=== PATIENT | female | born 1990 | race Caucasian/White ===

== ENCOUNTER 2017-08-26 05:31 | Inpatient (IN) | payer MEDICAID ==
[~2017-08-26] VITALS: Ht 172.7 cm; Wt 84.0 kg
[2017-08-26] MEDS ORDERED: OXYTOCIN 30U/ 0.9% NaCL 500ML 500 ML IV PRN (05:36)
[2017-08-26] MEDS ORDERED: OXYTOCIN 30U/ 0.9% NaCL 500ML 500 ML IV ONE (05:36)
[2017-08-26 05:44] VITALS: BP 131/80
[2017-08-26] MEDS ORDERED: PREN-3 PO (05:51)
[2017-08-26 05:56] LABS: BASOPHILS # (AUTO) 0.06 x10^3/uL (0-0.1); BASOPHILS % (AUTO) 1 % (0-1); EOSINOPHILS # (AUTO) 0.03 x10^3/uL (0-0.4); EOSINOPHILS % (AUTO) 0 % (1-7); LYMPHOCYTES # (AUTO) 2.03 x10^3/uL (1-3.4); LYMPHOCYTES % (AUTO) 20 % (22-44); MD NO; MEAN CORPUSCULAR HEMOGLOBIN 29.4 pg (27.0-34.8); MEAN CORPUSCULAR HGB CONC 34.3 g/dL (32.4-35.8); MEAN CORPUSCULAR VOLUME 85.5 fL (80-100); MEAN PLATELET VOLUME 10.6 fL (7.4-10.4); MONOCYTES # (AUTO) 0.73 x10^3/uL (0.2-0.8); MONOCYTES % (AUTO) 7 % (2-9); NEUTROPHILS # (AUTO) 7.39 x10^3/uL (1.8-6.8); NEUTROPHILS % (AUTO) 72 % (42-75); PLATELET COUNT 186 x10^3/uL (130-400); RED BLOOD COUNT 4.61 x10^6/uL (3.82-5.3)
[2017-08-26] MEDS ORDERED: PLEASE ENTER ALLERGIES MC SCH (06:00)
[2017-08-26] MEDS ORDERED: FENTANYL PF 100 MCG/2ML IVPush PRN (06:00)
[2017-08-26] MEDS ORDERED: FENTANYL PF 100 MCG/2ML IV PRN (06:00)
[2017-08-26] MEDS ORDERED: ONDANSETRON 2MG/ML, 2ML IVPush PRN (06:00)
[2017-08-26] MEDS: LACTATED RINGERS 1,000 ML IV SCH ×4 (06:11→20:30)
[2017-08-26] MEDS ORDERED: OXYTOCIN 30U/ 0.9% NaCL 500ML 500 ML ONE ×2 (06:30→20:45)
[2017-08-26] MEDS ORDERED: NEWBORN KIT ONE (06:30)
[2017-08-26] MEDS ORDERED: FENTANYL/BUPIV./NS/PF 250 ML EPIDCONT ONE ×2 (14:40→14:48)
[2017-08-26] MEDS ORDERED: LIDOCAINE 1%, 20ML ONE (14:48)
[2017-08-26] MEDS ORDERED: EPHEDRINE 50 MG/ML, 1ML ONE (14:48)
[2017-08-26] MEDS ORDERED: FENTANYL PF 100 MCG/2ML ONE (15:48)
[2017-08-26] MEDS ORDERED: IBUPROFEN 600 MG TABLET ONE (18:48)
[2017-08-26] MEDS: IBUPROFEN 600 MG TABLET PO PRN (18:50)
[2017-08-26] MEDS ORDERED: ACETAMINOPHEN 325 MG TABLET PO PRN (19:00)
[2017-08-26] MEDS ORDERED: CARBOPROST TROMETHAMINE 250 MCG/ML, 1ML IM PRN (19:00)
[2017-08-26] MEDS ORDERED: ONDANSETRON 2MG/ML, 2ML IV PRN (19:00)
[2017-08-26] MEDS ORDERED: MISOPROSTOL 200 MCG TABLET PR PRN (19:00)
[2017-08-26] MEDS ORDERED: DOCUSATE 100 MG CAPSULE PO PRN (19:00)
[2017-08-26] MEDS ORDERED: GLYCERIN ADULT SUPP PR PRN (19:00)
[2017-08-26] MEDS ORDERED: METOCLOPRAMIDE 5 MG/ML, 2ML IV PRN (19:00)
[2017-08-26] MEDS ORDERED: OXYcodone/APAP 5/325MG TABLET PO PRN (19:00)
[2017-08-26] MEDS ORDERED: IBUPROFEN 800 MG TABLET PO PRN (19:00)
[2017-08-26] MEDS ORDERED: LACTATED RINGERS 1,000 ML IVBOLUS PRN (20:30)
[2017-08-26] MEDS ORDERED: NALOXONE 0.4 MG/ML, 1ML IVPush PRN (20:30)
[2017-08-26] MEDS ORDERED: EPHEDRINE 50 MG/ML, 1ML IVPush PRN (20:30)
[2017-08-26] MEDS ORDERED: FENTANYL/BUPIV./NS/PF 250 ML EPIDCONT SCH (20:30)
[2017-08-26] MEDS: OXYTOCIN 30U/ 0.9% NaCL 500ML 500 ML IV SCH (20:48)
[2017-08-26 21:00] VITALS: BP 111/64
[2017-08-26] MEDS: OXYcodone/APAP 5/325MG TABLET PO PRN (21:24)
[2017-08-27] VITALS: BP 124/70
[2017-08-27 02:25] LABS: BASOPHILS # (AUTO) 0.04 x10^3/uL (0-0.1); BASOPHILS % (AUTO) 0 % (0-1); EOSINOPHILS # (AUTO) 0.02 x10^3/uL (0-0.4); EOSINOPHILS % (AUTO) 0 % (1-7); LYMPHOCYTES # (AUTO) 2.21 x10^3/uL (1-3.4); LYMPHOCYTES % (AUTO) 16 % (22-44); MD NO; MEAN CORPUSCULAR HEMOGLOBIN 29.7 pg (27.0-34.8); MEAN CORPUSCULAR HGB CONC 34.4 g/dL (32.4-35.8); MEAN CORPUSCULAR VOLUME 86.4 fL (80-100); MEAN PLATELET VOLUME 10.6 fL (7.4-10.4); MONOCYTES # (AUTO) 0.94 x10^3/uL (0.2-0.8); MONOCYTES % (AUTO) 7 % (2-9); NEUTROPHILS # (AUTO) 10.84 x10^3/uL (1.8-6.8); NEUTROPHILS % (AUTO) 77 % (42-75); PLATELET COUNT 171 x10^3/uL (130-400); RED BLOOD COUNT 3.85 x10^6/uL (3.82-5.3); RED CELL DISTRIBUTION WIDTH 13.1 % (9.6-15.2)
[2017-08-27] MEDS: LACTATED RINGERS 1,000 ML IV SCH ×2 (04:30→12:30)
[2017-08-27] MEDS: OXYTOCIN 30U/ 0.9% NaCL 500ML 500 ML IV SCH (04:44)
[2017-08-27 04:45] VITALS: BP 115/72
[2017-08-27] MEDS: IBUPROFEN 600 MG TABLET PO PRN ×3 (04:46→17:03)
[2017-08-27 07:00] VITALS: BP 105/64
[2017-08-27] MEDS ORDERED: PRENATAL VIT/IRON/FA 1 EACH TABLET PO SCH (09:00)
[2017-08-27] MEDS: OXYcodone/APAP 5/325MG TABLET PO PRN ×2 (09:55→17:03)
[2017-08-27] MEDS ORDERED: IBUP-1222 PO (11:39)
[2017-08-27] MEDS ORDERED: OXYC-302 PO (11:40)
[2017-08-27 12:42] VITALS: BP 118/72
== END 2017-08-27 17:45 | disposition home or self-care (01) | DRG 775 ==
LOC: LDIP 05:31 → 2NW 20:51
PROVIDERS: ADMIT Student in an Organized Health Care Education/Training Program; ATTEND Student in an Organized Health Care Education/Training Program
PROC: 10E0XZZ Delivery of Products of Conception, External Approach (ICD-10-PCS; principal; 2017-08-26)
PROC: 0KQM0ZZ Repair Perineum Muscle, Open Approach (ICD-10-PCS; 2017-08-26)
PROC: 10907ZC Drainage of Amniotic Fluid, Therapeutic from Products of Conception, Via Natural or Artificial Opening (ICD-10-PCS; 2017-08-26)
PROC: 3E0R3BZ Introduction of Anesthetic Agent into Spinal Canal, Percutaneous Approach (ICD-10-PCS; 2017-08-26)
PROC: 00HU33Z Insertion of Infusion Device into Spinal Canal, Percutaneous Approach (ICD-10-PCS; 2017-08-26)
PROC: 3E033VJ Introduction of Other Hormone into Peripheral Vein, Percutaneous Approach (ICD-10-PCS; 2017-08-26)
DX: O69.81X0 Labor and delivery complicated by cord around neck, without compression, not applicable or unspecified (principal); O70.1 Second degree perineal laceration during delivery; Z37.0 Single live birth; Z3A.39 39 weeks gestation of pregnancy; Z80.0 Family history of malignant neoplasm of digestive organs
CPT/HCPCS: 36415; 85025; 86850; 86900; J3490; J2590; J3010; J7120